=== PATIENT | female | born 1950 | race Two or more races ===

== ENCOUNTER 2023-11-11 17:20 | Emergency (ER) | payer MEDICARE, BC ==
[~2023-11-11] VITALS: Ht 157.5 cm; Wt 49.9 kg
[2023-11-11 18:28] LABS: BASOPHILS % (AUTO) 0.1 % (0.0-2.0); EOSINOPHILS % (AUTO) 0.1 % (0.0-7.0); HEMOGLOBIN 9.8 g/dL (10.9-14.3); LYMPHOCYTES # (AUTO) 0.2 K/uL (0.8-4.8); LYMPHOCYTES % (AUTO) 3.4 % (20.5-51.5); MEAN CORPUSCULAR HEMOGLOBIN 27.4 uug (24.7-32.8); MEAN CORPUSCULAR HGB CONC 32 g/dL (32.3-35.6); MEAN CORPUSCULAR VOLUME 86.8 fL (75.5-95.3); MONOCYTES # (AUTO) 0.2 K/uL (0.1-1.30); MONOCYTES % (AUTO) 4.2 % (0.0-11.0); NEUTROPHILS # (AUTO) 5.1 K/uL (1.8-8.9); NEUTROPHILS % (AUTO) 92.2 % (38.5-71.5); PLATELET COUNT (AUTO) 186 K/uL (179-408); RED BLOOD CELL COUNT(AUTO) 3.57 MIL/uL (3.63-4.92); RED CELL DISTRIBUTION WIDTH 19.3 % (12.3-17.7); WHITE BLOOD COUNT (AUTO) 5.6 K/uL (3.8-11.8)
[2023-11-11 18:31] LABS: DIFFERENTIAL COMMENT 1
[2023-11-11] MEDS ORDERED: PRED2.5T PO (18:33)
[2023-11-11] MEDS ORDERED: EVER0.5T PO (18:33)
[2023-11-11] MEDS ORDERED: FERR270T PO (18:33)
[2023-11-11] MEDS ORDERED: ENAL-80 PO (18:33)
[2023-11-11] MEDS ORDERED: ATOR10TA PO (18:33)
[2023-11-11] MEDS ORDERED: METO-358 PO (18:33)
[2023-11-11] MEDS ORDERED: MYCO360T PO (18:33)
[2023-11-11] MEDS ORDERED: APIX5TAB PO (18:33)
[2023-11-11 18:38] LABS: CALCIUM 8.8 mg/dL (8.5-10.1); CARBON DIOXIDE 21 mmol/L (21-32); CHLORIDE 108 mmol/L (98-107); CREATININE 1.7 mg/dL (0.6-1.3); GLUCOSE 137 mg/dL (74-106); SODIUM SERUM 139 mmol/L (136-145); UREA NITROGEN, BLOOD 39 mg/dL (7-18)
[2023-11-11 18:51] LABS: ALANINE AMINOTRANSFERASE 17 U/L (14-59); ALBUMIN 2.3 g/dL (3.4-5.0); ALKALINE PHOSPHATASE 51 U/L (50-136); ASPARTATE AMINOTRANSFERASE 16 U/L (15-37); BILIRUBIN,TOTAL 0.4 mg/dL (0.2-1.0); LIPASE 32 U/L (16-77); TOTAL PROTEIN, SERUM 5.5 g/dL (6.4-8.2)
[2023-11-11] MEDS ORDERED: DICYCLOMINE HCL LIQ 10 MG/5 ML UDC ONE (19:29)
[2023-11-11] MEDS ORDERED: DIPHENOXYLATE HCL/ATROP SULF TABLET ONE (19:30)
[2023-11-11] MEDS: DICYCLOMINE HCL LIQ 10 MG/5 ML UDC PO ONE (19:33)
[2023-11-11] MEDS: DIPHENOXYLATE HCL/ATROP SULF TABLET PO ONE (19:33)
[2023-11-11] MEDS: IV NORMAL SALINE 1000 ML BAG IV ONE ×2 (20:19→20:35)
[2023-11-11] MEDS ORDERED: DICY20TA11 PO (22:22)
[2023-11-11] MEDS ORDERED: DIPH1TAB PO (22:22)
[2023-11-11 22:39] VITALS: BP 104/66; O2SAT 96
== END 2023-11-11 22:39 | disposition home or self-care (01) ==
LOC: ER 17:24
DX: R19.7 Diarrhea, unspecified (principal); E86.0 Dehydration; I48.91 Unspecified atrial fibrillation; E78.00 Pure hypercholesterolemia, unspecified; Z79.52 Long term (current) use of systemic steroids; Z98.890 Other specified postprocedural states; Z79.899 Other long term (current) drug therapy; Z88.5 Allergy status to narcotic agent; Z88.8 Allergy status to other drugs, medicaments and biological substances
CPT/HCPCS: 36415; 83690; 85025; 93005; A4606; A4663; J7040